=== PATIENT | male | born 1950 | race Hispanic/Latino ===

== ENCOUNTER → 2017-10-09 | Outpatient (CLI) | payer OTHER | END | disposition home or self-care (01) | LOC: OIH 11:20 | PROVIDERS: ATTEND Family Medicine | DX: I10 Essential (primary) hypertension (principal) | CPT/HCPCS: 71046 ==

== ENCOUNTER 2024-04-21 11:22 | Emergency (ER) | payer OTHER, MEDICARE ==
[~2024-04-21] VITALS: Ht 175.3 cm; Wt 61.2 kg
--- NOTE | 2024-04-21 11:44 | ERN ---
ED Note History of Present Illness Stated Complaint: CHEST PAIN Chief Complaint: Chest Pain Time Seen by MD: 11:27 Dictation: This 73-year-old gentleman with a history of hyperlipidemia who drinks whiskey daily and smokes cigarettes daily presents with a an episode of substernal chest pain that began at 8:30 a.m. in the morning while he was sitting in bed prior to eating or getting up. The pain was a hard pain in the substernal area and his arms fell asleep. He felt a little bit of a cold sweat. He has been coughing producing white sputum. The pain lasted 1 hour and seems to have abated. He does have a history of heartburn but this was different. There was no associated palpitations, shortness breath, edema, nausea or syncope. He has never seen a higher level teaching assistant. His PCP is Dr. Aragon. Last night he was smoking tobacco, he drank a medium size bottle of whiskey and did some cocaine. He is here with family Allergies: Coded Allergies: No Known Drug Allergies (Unverified Allergy, Unknown, 04/21/24) Past Medical History Past Medical History: High Cholesterol Surgical History: None Review of System Dictation All pertinent systems reviewed, negative except as documented in the HPI The ROS is obtained from patient GENERAL/CONSTITUTIONAL: Negative except as documented in HPI. ENT: Negative except as documented in HPI. CARDIOVASCULAR: Negative except as documented in HPI. RESPIRATORY: Negative except as documented in HPI. GASTROINTESTINAL: Negative except as documented in HPI. GENITOURINARY: Negative except as documented in HPI. MUSCULOSKELETAL: Negative except as documented in HPI. SKIN: Negative except as documented in HPI. NEUROLOGIC: Negative except as documented in HPI. Initial Vital Sign VS Vital Signs Date Time Temp Pulse Resp B/P (MAP) Pulse Ox O2 Delivery O2 Flow Rate FiO2 04/21/24 11:24 97.9 114 14 108/62 97 Room Air 0 04/21/24 11:59 21 Physical Exam Dictation VITAL SIGNS: note is made of triage vital signs CONSTITUTIONAL: This is a comfortable patient who is awake, alert, and appropriately interactive. HEAD: Normocephalic, Atraumatic. EYES: Periorbital areas with no swelling, redness, or edema. Lids and lashes are normal. Conjunctival injection is absent. Sclera anicteric. Pupils equal, round, reactive to light. Bilateral arcus senilis. ENT: No nasal discharge noted. Posterior pharynx is without exudate, redness, swelling, masses, or evidence of obstruction. Uvula midline. Mucous membranes moist. NECK: Trachea midline, no masses palpated, and no cervical lymphadenopathy. No swelling. Supple, full range of motion without nuchal rigidity. No vertebral point tenderness. No meningismus. CHEST/AXILLA: Normal chest wall appearance and motion. No tenderness. No crepitus. CV: Normal rate, regular rhythm. No murmur. No edema. RESPIRATORY:Respiratory rate is normal. Bilateral equal breath sounds with good airflow. Mild expiratory wheezes are noted. No increased work of breathing, no retractions. ABDOMEN: Inspection normal. No distention is appreciated. Bowel sounds are normal. No mass or organomegaly is appreciated. There is no tenderness. No rebound. No rigidity. No voluntary or involuntary guarding. BACK: Inspection is normal. No midline tenderness is appreciated. The patient appears comfortable when moving. : No CVA tenderness or bladder tenderness. SKIN: Warm, dry, with normal turgor. Capillary refill less than 3 seconds. Normal color.No rash. No cellulitis or abscess. No evidence of acute injury. MS/Extremity: There is no calf tenderness. Baseline range of motion is noted in all 4 extremities. There are no deformities. NEURO: Awake and alert, lucid. Facies symmetric and speech is clear. Motor strength 5/5 in all extremities. Sensory grossly intact. PSYCH: Patient is appropriately attentive and cooperative without evidence of hallucination. Results (Laboratory/Radiology) Laboratory/Radiology Laboratory Tests Test 04/21/24 11:42 04/21/24 12:22 04/21/24 14:06 04/21/24 14:17 White Blood Count 10.8 K/uL (4.8-10.8) Red Blood Count 4.61 MIL/uL (4.50-6.20) Hemoglobin 15.0 g/dL (14.0-18.0) Hematocrit 44.1 % (42-54) Mean Corpuscular Volume 95.7 fL (79-99) Mean Corpuscular Hemoglobin 32.5 pg (27.0-33.0) Mean Corpuscular Hemoglobin Concent 34.0 g/dL (32.0-36.0) Red Cell Distribution Width 14.4 % (11.0-15.5) Platelet Count 322 K/uL (130-400) Mean Platelet Volume 10.3 fL (7.5-10.5) Immature Granulocyte % (Auto) 0.3 % (0-1) Neutrophils (%) (Auto) 52.1 % (40.0-77.0) Lymphocytes (%) (Auto) 35.7 % (21.0-51.0) Monocytes (%) (Auto) 9.2 % (3.0-13.0) Eosinophils (%) (Auto) 2.3 % (0.0-8.0) Basophils (%) (Auto) 0.4 % (0.0-5.0) Neutrophils # (Auto) 5.6 K/uL (1.8-7.7) Lymphocytes # (Auto) 3.9 K/uL (1.0-4.8) Monocytes # (Auto) 1.0 K/uL (0.1-1.0) Eosinophils # (Auto) 0.25 K/uL (0.00-0.70) Basophils # (Auto) 0.04 K/uL (0.00-0.20) Absolute Immature Granulocyte (auto 0.03 K/uL (0-1) Nucleated Red Blood Cells 0.0 % (0.0-0.19) Prothrombin Time 11.0 SEC (9.6-11.6) Prothromb Time International Ratio 1.02 (0.85-1.15) Activated Partial Thromboplast Time 25.6 SEC (26.3-35.5) L D-Dimer Quantitative (PE/DVT) 813 ng/mL (0-500) *H Sodium Level 146 mmol/L (136-145) H Potassium Level 3.6 mmol/L (3.5-5.1) Chloride Level 106 mmol/L (101-111) Carbon Dioxide Level 26 mmol/L (21-32) Blood Urea Nitrogen 14 mg/dL (7-18) Creatinine 0.9 mg/dL (0.5-1.3) Glomerular Filtration Rate Calc 89 mL/min (>90) Random Glucose 55 mg/dL (70-105) L Total Calcium 9.4 mg/dL (8.5-10.1) Magnesium Level 2.10 mg/dL (1.80-2.40) Total Bilirubin 0.5 mg/dL (0.2-1.0) Direct Bilirubin 0.2 mg/dL (0.0-0.3) Aspartate Amino Transf (AST/SGOT) 48 U/L (10-37) H Alanine Aminotransferase (ALT/SGPT) 56 U/L (12-78) Alkaline Phosphatase 213 U/L (50-136) H Total Creatine Kinase 48 U/L (21-232) B-Type Natriuretic Peptide 27 pg/mL (0-100) Total Protein 7.3 g/dL (6.0-8.3) Albumin 3.5 g/dL (3.5-5.0) Lipase 49 U/L (16-77) Troponin I < 0.05 ng/mL (0.00-0.05) Urine Color YELLOW (YELLOW) Urine Appearance CLEAR (CLEAR) Urine pH 5.0 (5.0-8.0) Urine Specific [place] 1.014 (1.001-1.031) Urine Protein 10 mg/dL (NEGATIVE) H Urine Glucose (UA) NEGATIVE mg/dL (NEGATIVE) Urine Ketones 40 mg/dL (NEGATIVE) H Urine Occult Blood NEGATIVE (NEGATIVE) Urine Nitrate NEGATIVE (NEGATIVE) Urine Bilirubin NEGATIVE mg/dL (NEGATIVE) Urine Urobilinogen 0.2 mg/dL (0.2-1.0) Urine Leukocyte Esterase NEGATIVE Brendan/uL Urine RBC 0-1 /HPF (0-1) Urine WBC 0-1 /HPF (0-1) Urine Bacteria None /HPF (None Seen) Troponin I High Sensitivity 561 ng/L (4-75) *H EKG Comment: Time reviewed: 11:35 a.m. 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 Claudia Joy Time reviewed: 15 10 EKG number; 1 Rate and rhythm: Sinus rhythm at 79 beats per minute [place]: -64 Morphology: Right bundle branch block and anterior fascicular block SC interval: normal QT interval: normal ST/Twaves: normal Impression: No change compared with EKG 1, no evolution of ST elevation EKG INTERPRETATION by Dr. Claudia Joy X-RAY Comment: Institution : [facility] Accession No. : [id number] Patient : BANDAR VILLEDA Creator : Dictator : Sr Community Manager : Reception Clerk : CRISTIANA MCINTOSH Approver2 : Study : CHEST 1VW Study Date : 04/21/2024 11:50:02 Report Date : [address] [id number] IMAGING REPORT Signed PATIENT: CHRISTIANA PORTILLO MR#: [id number] : 1950 SEX: M AGE: 73 LOCATION: [facility] ORDER [id number] STATUS: REG ER REPORT#: [id number] SERVICE 1140 REASON: CHEST PAIN ORDERING PHYSICIAN: CLAUDIA JOY MD PROCEDURE: CXR1VW - CHEST 1VW CHEST 1VW HISTORY: Chest pain COMPARISON: None FINDINGS: A frontal projection of the chest was obtained. Mild bilateral pulmonary infiltrates are seen may be related to mild pulmonary vascular congestion with possible superimposed pneumonitis. The heart is normal in size. Degenerative changes are seen. Aortic calcifications are seen. IMPRESSION: 1. Mild bilateral pulmonary infiltrates are seen may be related to mild pulmonary vascular congestion with possible superimposed pneumonitis. DICTATED BY: CRISTIANA MCINTOSH MD DATE: 04/21/241213 ELECTRONICALLY SIGNED BY: CRISTIANA MCINTOSH MD DATE: 04/21/241217 ED Course ED Course Orders Procedure Category Date Status Time Vital Signs Per CPOE 04/21/24 Transmitted Routine 11:40 B-Type Natriuretic LAB 04/21/24 Complete Peptide 11:40 Chest 1vw RAD 04/21/24 Resulted 11:40 12 Lead Ekg Tracing- EKG 04/21/24 Logged Technical 11:40 Oxygen By Nc/Pulse Ox CPOE 04/21/24 Transmitted 11:40 Maintain Iv CPOE 04/21/24 Transmitted 11:40 Iv Insertion CPOE 04/21/24 Transmitted 11:40 Cardiac Monitoring CPOE 04/21/24 Transmitted 11:40 Pulse Oximetry With CPOE 04/21/24 Transmitted Vs And Prn 11:40 Cbc With Differential LAB 04/21/24 Complete 11:40 Activity: Br W/Brp CPOE 04/21/24 Transmitted With Assist 11:40 Creatine Kinase, Total LAB 04/21/24 Complete 11:40 Urinalysis Profile LAB 04/21/24 Complete 11:40 Troponin Poc Order LAB 04/21/24 Complete Only 11:40 Bedside Troponin-I LAB.ER 04/21/24 In Process (Poc) 11:40 Basic Metabolic Panel LAB 04/21/24 Complete 11:40 Aspirin 325mg Tab PHA 04/21/24 Complete (Aspirin 325mg Tab) 12:30 Lipase LAB 04/21/24 Complete 12:34 Hepatic Function Panel LAB 04/21/24 Complete 12:34 Magnesium LAB 04/21/24 Complete 12:34 D-Dimer LAB 04/21/24 Complete 12:34 Troponin I High LAB 04/21/24 Complete Sensitivity 14:07 *Nursing CPOE 04/21/24 Transmitted Communication: 14:07 Iohexol (Omnipaque) PHA 04/21/24 Complete 14:18 Iohexol (Omnipaque) PHA 04/21/24 Complete 14:18 12 Lead Ekg Tracing- EKG 04/21/24 Logged Technical 15:02 Pt And Ptt LAB 04/21/24 Complete 15:14 Current Medications Medications (Trade) Dose Ordered Sig/Agapito Route PRN Reason Start Time Stop Time Status Last Admin Dose Admin Aspirin (Aspirin 325mg Tab) 325 mg ONCE ONCE PO 04/21/24 12:30 04/21/24 12:31 DC 04/21/24 12:26 Iohexol (Omnipaque) 75 ml STK-MED ONCE IV 04/21/24 14:18 04/21/24 14:18 DC Iohexol (Omnipaque) 35,000 mg STK-MED ONCE IV 04/21/24 14:18 04/21/24 14:19 DC Vital Signs Date Time Temp Pulse Resp B/P (MAP) Pulse Ox O2 Delivery O2 Flow Rate FiO2 04/21/24 15:06 98.2 92 19 132/65 98 Room Air* 0 21 04/21/24 14:05 94 20 147/63 97 Room Air* 0 21 04/21/24 11:59 100 21 128/66 98 Room Air* 0 21 04/21/24 11:24 97.9 114 14 108/62 97 Room Air 0 HEART Score Response (Comments) Value History: Moderate suspicion (+1) 1 EKG: Repolarization changes 1 Age: > 65yrs (+2) 2 Risk Factors: 1-2 risk factors (+1) 1 HEART Score Risk: Mod Risk for MACE (4-6) Total 5 Medical Decision Making MDM INITIAL IMPRESSION Initial history and physical concerning for episode of chest pain in a patient with alcohol and cocaine use, hyperlipidemia and advanced age. No evidence of STEMI on the initial EKG, pain has resolved Contributing medical problems: As above I have reviewed the triage nursing notes and vital signs. Mild tachycardia is present at triage and during my examination Initial plan: Laboratory screening. The patient is asking for discharge DATA REVIEW I have reviewed additional NN, repeat VS, and monitoring where indicated. Heart rate, blood pressure, and O2 saturation are acceptable. Enciso diagnostic results: CBC is normal. BNP is negative. Troponin is less than 0.05. BUN and creatinine are normal. Glucose is 55 and a sodium is 146 Repeat troponin came back elevated. Other independent historian: none Review of external data: No recent ED visits ED COURSE Interventions: Patient received aspirin but was pain-free Reassessment: The patient remained pain-free. He was able to eat and drink in the emergency department. When I advised him that had it appeared that he had had a heart attack and we would be admitting him in the hospital for further evaluation and management he initially agreed. Later he became irritable and stated that he was 73 years old, he did not want to be in the hospital, and that although he knew he could that was always possible at his age and he did not want further therapy for his current diagnosis. I discussed the possibility of sudden and life as a cardiac cripple should he go on to worsening cardiac function and he continues to refuse hospitalization. He says the issues that I have raised do not matter to him and that he would prefer to be home than in the hospital. He also states that he does not believe that there was anything wrong with his heart because he came in with pain in the middle of his chest instead of pain on the left side. I have tried to address all of his concerns in detail but he is adamant that he will be refusing care. He states he is pain-free at the time of our conversation. He is lucid and voices an understanding of my concerns. DISPOSITION Final diagnostic impression: Non ST-elevation myocardial infarction I discussed my findings, clinical impression and treatment recommendations with the patient. I have reviewed the social factors contributing to the patient's presentation and disposition planning. We will speak to the when she arrives as well. Unfortunately he walked out of the emergency department without waiting for his and did not accept any prescriptions. Hospitalization is indicated due to a high risk of short term progression, complication, morbidity or mortality related to the current diagnosis Patient is leaving against medical advice This dictation was prepared using medical voice recognition software. Occasional voice recognition errors may occur. When identified, these errors have been corrected. While every attempt is made to correct errors during dictation, errors may still exist. DX & DISP Disposition: AMA Decision to Admit Date: Apr 21, 2024 Decision to Admit Time: 15:44 Departure Impression: Primary Impression: Non-ST elevation NE (NSTEMI) Additional Impressions: AMA departure, History of cocaine and alcohol abuse Condition: Stable Referrals: CAMI VASQUEZ MD (PCP) Time of Disposition: 15:45 CLAUDIA JOY MD Apr 21, 2024 11:44
[2024-04-21 12:08] LABS: CREATININE 0.9 mg/dL (0.5-1.3); POTASSIUM 3.6 mmol/L (3.5-5.1)
--- NOTE | 2024-04-21 12:18 | HMCIMG ---
CHEST 1VW HISTORY: Chest pain COMPARISON: None FINDINGS: A frontal projection of the chest was obtained. Mild bilateral pulmonary infiltrates are seen may be related to mild pulmonary vascular congestion with possible superimposed pneumonitis. The heart is normal in size. Degenerative changes are seen. Aortic calcifications are seen. IMPRESSION: 1. Mild bilateral pulmonary infiltrates are seen may be related to mild pulmonary vascular congestion with possible superimposed pneumonitis.
[2024-04-21] MEDS: ASPIRIN 325MG TAB PO ONE (12:26)
[2024-04-21 12:38] LABS: B-TYPE NATRIURETIC PEPTIDE 27 pg/mL (0-100)
[2024-04-21 12:43] LABS: BASOPHILS # (AUTO) 0.04 K/uL (0.00-0.20); BASOPHILS % (AUTO) 0.4 % (0.0-5.0); EOSINOPHILS # (AUTO) 0.25 K/uL (0.00-0.70); EOSINOPHILS % (AUTO) 2.3 % (0.0-8.0); HEMATOCRIT 44.1 % (42-54); IMMATURE GRANULOCYTE ABSOLUTE 0.03 K/uL (0-1); LYMPHOCYTES # (AUTO) 3.9 K/uL (1.0-4.8); LYMPHOCYTES % (AUTO) 35.7 % (21.0-51.0); MEAN CORPUSCULAR HEMOGLOBIN 32.5 pg (27.0-33.0); MEAN CORPUSCULAR VOLUME 95.7 fL (79-99); MONOCYTES % (AUTO) 9.2 % (3.0-13.0); NEUTROPHILS # (AUTO) 5.6 K/uL (1.8-7.7); NEUTROPHILS % (AUTO) 52.1 % (40.0-77.0); PLATELET COUNT (AUTO) 322 K/uL (130-400); RED BLOOD CELL COUNT(AUTO) 4.61 MIL/uL (4.50-6.20); RED CELL DISTRIBUTION WIDTH 14.4 % (11.0-15.5); WHITE BLOOD COUNT (AUTO) 10.8 K/uL (4.8-10.8)
[2024-04-21 14:12] LABS: APPEARANCE,URINE CLEAR (CLEAR); BILIRUBIN,URINE NEGATIVE (NEGATIVE); COLOR,URINE YELLOW (YELLOW); GLUCOSE, URINE (UA) NEGATIVE (NEGATIVE); KETONES,URINE 40 mg/dL (NEGATIVE); LEUKOCYTE ESTERASE ,URINE NEGATIVE Leu/uL (NEGATIVE); NITRATE,URINE NEGATIVE (NEGATIVE); OCCULT BLOOD,URINE NEGATIVE (NEGATIVE); PROTEIN,URINE 10 mg/dL (NEGATIVE); UROBILINOGEN,URINE 0.2 mg/dL (0.2-1.0)
[2024-04-21 14:15] LABS: ADD UA MICROSCOPIC YES
[2024-04-21 14:16] LABS: MUCUS,URINE RARE LPF (None Seen); RBC,URINE 0-1 /HPF (0-1); WBC,URINE 0-1 /HPF (0-1)
[2024-04-21] MEDS ORDERED: IOHEXOL 350 MG/ML 100ML INFUS..BTL IV ONE (14:18)
[2024-04-21] MEDS ORDERED: IOHEXOL-350 75 ML VIAL IV ONE (14:18)
--- NOTE | 2024-04-21 14:20 | NUR ---
PT REFUSED CT OF CHEST, DR JOY MADE AWARE.
--- NOTE | 2024-04-21 14:22 | NUR ---
PER NURSE, PATIENT REFUSING CT PE PROTOCOL EXAM.
[2024-04-21 14:25] LABS: ALBUMIN 3.5 g/dL (3.5-5.0); BILIRUBIN,DIRECT 0.2 mg/dL (0.0-0.3); BILIRUBIN,TOTAL 0.5 mg/dL (0.2-1.0); MAGNESIUM 2.1 mg/dL (1.80-2.40); TOTAL PROTEIN, SERUM 7.3 g/dL (6.0-8.3)
[2024-04-21 15:06] VITALS: BP 132/65; PULSE 92; RESP 19; TEMP 98.2; O2SAT 98
[2024-04-21 15:27] LABS: INR 1.02 (0.85-1.15)
[2024-04-21 15:28] LABS: PARTIAL THROMBOPLASTIN TIME 25.6 SEC (26.3-35.5)
--- NOTE | 2024-04-21 15:38 | NUR ---
PT REFUSING ADMISSION TO HOSPITAL, INFORMED PT OF RISK FOR AND VERBALIZED UNDERSTANDING BUT THAT HE WAS STILL LEAVING AMA, FORM SIGNED. DR JOY TRIED TO CONVINCE PT TO STAY, HOWEVER, PT REFUSED AND WALKED OUT OF HOSPITAL
--- NOTE | 2024-04-21 15:52 | EKG ---
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
--- NOTE | 2024-04-21 15:52 | EKG ---
[facility] Test Date: 2024-04-21 Test Time: 15:06:06 Pat Name: CHRISTIANA PORTILLO Department: ED Room: Gender: M Drop Board Man: [id number] : 1950 Requested By: CLAUDIA JOY Order Number: [id number] Reading MD: Laura Florez Measurements Intervals [place] Rate: 79 P: 27 ND: 170 QRS: -64 QRSD: 157 T: 24 QT: 422 QTc: 484 Interpretive Statements Sinus rhythm RBBB and LAFB Compared to ECG 04/21/2024 11:29:37 Atrial premature complex(es) no longer present Electronically Signed On 04-22-2024 01:25:41 HEEL SEATER by Laura Florez Please click the below link to view image of tracing.
== END 2024-04-21 15:47 | disposition left against medical advice (07) ==
LOC: EDH 11:22
DX: I21.4 Non-ST elevation (NSTEMI) myocardial infarction (principal); E78.00 Pure hypercholesterolemia, unspecified; F10.10 Alcohol abuse, uncomplicated
CPT/HCPCS: 36415; 71045; 80048; 80076; 81001; 82550; 83690; 83735; 83880; 84484; 85025; 85378; 85610; 85730; 93005; 99285; Q9967